=== PATIENT | female | born 1955 | race Caucasian/White ===

== ENCOUNTER → 2020-06-11 | Outpatient (CLI) | payer OTHER ==
--- NOTE | 2020-06-11 15:34 | RAD ---
Examination: 1. Limited right breast ultrasound. INDICATION: Screening recall for 6 mm mass in the right 6:30 o'clock position 2.7 cm from the nipple. COMPARISON: Bilateral screening mammogram of 05/28/2020 TECHNIQUE: Grayscale ultrasound imaging of the inferior subareolar right breast was performed in addition to sonographic survey of the right axilla. FINDINGS: Sonographically benign cyst at the 6:00 position 1 cm from the nipple measuring 7 mm is identified and correlates in size shape and position with the mammographic finding recalled from screening. No suspicious sonographic findings identified. No abnormal right axillary lymph nodes noted on ultrasound. IMPRESSION: Benign cyst in the subareolar right breast. No evidence of malignancy. Recommend return to routine screening next due in one year in the absence of any clinical concerns which should be promptly reported to the patient's primary care physician if present. BI-RADS Category 2 Benign findings Electronically signed by: Allyson Glasgow MD (06/11/2020 3:31 PM) [id number]
== END ==
LOC: US 14:05
PROVIDERS: ATTEND Internal Medicine
DX: R92.8 Other abnormal and inconclusive findings on diagnostic imaging of breast (principal); N60.02 Solitary cyst of left breast
CPT/HCPCS: 76641

== ENCOUNTER 2020-09-21 06:17 | Emergency (ER) | payer OTHER ==
[~2020-09-21] VITALS: Ht 162.6 cm; Wt 54.0 kg
--- NOTE | 2020-09-21 06:35 | PHYS DOC ---
Past Medical History Past Medical History: Hypertension, Kidney Stone General Adult EDM: Chief Complaint: FLANK PAIN HPI: HPI: Patient is a 64 year old female who presented to ER for evaluation of left- sided back pain and flank pain started yesterday. Patient has a history of kidney stones in the past but she said the pain today is more severe. Patient denies any cough or fever, no chest pain, no nausea OR vomiting. Patient denies any injury. Review of Systems: Review of Systems: Constitutional: Denies fever or chills. [] Eyes: Denies change in visual acuity. [] HENT: Denies nasal congestion or sore throat. [] Respiratory: Denies cough or shortness of breath. [] Cardiovascular: Denies chest pain or edema. [] GI: Positive for left side flank pain, left-sided back pain, no nausea vomiting, no diarrhea. : Denies dysuria. [] Musculoskeletal: Positive for low back pain, no joint pain. Integument: Denies rash. [] Neurologic: Denies headache, focal weakness or sensory changes. [] Endocrine: Denies polyuria or polydipsia. [] Lymphatic: Denies swollen glands. [] Psychiatric: Denies depression or anxiety. [] Heart Score: Risk Factors: Risk Factors: DM, Current or recent (<one month) smoker, HTN, HLP, family history of CAD, obesity. Risk Scores: Score 0 - 3: 2.5% MACE over next 6 weeks - Discharge Home Score 4 - 6: 20.3% MACE over next 6 weeks - Admit for Clinical Observation Score 7 - 10: 72.7% MACE over next 6 weeks - Early Invasive Strategies Physical Exam: PE: Constitutional: Well developed, well nourished, no acute distress, non-toxic appearance. [] HENT: Normocephalic, atraumatic, bilateral external ears normal, oropharynx moist, no oral exudates, nose normal. [] Eyes: PERRLA, EOMI, conjunctiva normal, no discharge. [] Neck: Normal range of motion, no tenderness, supple, no stridor. [] Cardiovascular:Heart rate regular rhythm, no murmur [] Lungs & Thorax: Bilateral breath sounds clear to auscultation [] Abdomen: Bowel sounds normal, soft, no tenderness, no masses, no pulsatile masses. [] Skin: Warm, dry, no erythema, no rash. [] Back: No tenderness, no CVA tenderness. [] Extremities: No tenderness, no cyanosis, no clubbing, ROM intact, no edema. [] Neurologic: Alert and oriented X 3, normal motor function, normal sensory function, no focal deficits noted. [] Psychologic: Affect normal, judgement normal, mood normal. [] Current Patient Data: Labs: Laboratory Tests Test 09/21/20 06:35 White Blood Count 12.8 x10^3/uL Red Blood Count 5.26 x10^6/uL Hemoglobin 16.1 g/dL Hematocrit 48.1 % Mean Corpuscular Volume 92 fL Mean Corpuscular Hemoglobin 31 pg Mean Corpuscular Hemoglobin Concent 33 g/dL Red Cell Distribution Width 14.5 % Platelet Count 261 x10^3/uL Neutrophils (%) (Auto) 83 % Lymphocytes (%) (Auto) 12 % Monocytes (%) (Auto) 4 % Eosinophils (%) (Auto) 0 % Basophils (%) (Auto) 0 % Neutrophils # (Auto) 10.7 x10^3/uL Lymphocytes # (Auto) 1.6 x10^3/uL Monocytes # (Auto) 0.5 x10^3/uL Eosinophils # (Auto) 0.0 x10^3/uL Basophils # (Auto) 0.0 x10^3/uL Urine Collection Type Unknown Urine Color Yellow Urine Clarity Clear Urine pH 6.0 Urine Specific [place] 1.025 Urine Protein Negative mg/dL Urine Glucose (UA) Negative mg/dL Urine Ketones (Stick) Trace mg/dL Urine Blood Moderate Urine Nitrite Negative Urine Bilirubin Negative Urine Urobilinogen Dipstick 1.0 mg/dL Urine Leukocyte Esterase Negative Urine RBC 3-5 /HPF Urine WBC 0 /HPF Urine Squamous Epithelial Cells Few /LPF Urine Bacteria 0 /HPF Urine Mucus Slight /LPF Urine Yeast Present /HPF Sodium Level 141 mmol/L Potassium Level 3.9 mmol/L Chloride Level 104 mmol/L Carbon Dioxide Level 26 mmol/L Anion Gap 11 Blood Urea Nitrogen 15 mg/dL Creatinine 0.5 mg/dL Estimated GFR (Cockcroft-Gault) 123.4 BUN/Creatinine Ratio 30 Glucose Level 133 mg/dL Calcium Level 9.7 mg/dL Total Bilirubin 0.6 mg/dL Aspartate Amino Transf (AST/SGOT) 17 U/L Alanine Aminotransferase (ALT/SGPT) 35 U/L Alkaline Phosphatase 81 U/L Total Protein 6.7 g/dL Albumin 4.2 g/dL Albumin/Globulin Ratio 1.7 Lipase 68 U/L Current Medications Medications (Trade) Dose Ordered Sig/Regis Route PRN Reason Start Time Stop Time Status Last Admin Dose Admin Ondansetron HCl (Zofran) 4 mg 1X ONCE IVP 09/21/20 06:45 09/21/20 06:46 DC 09/21/20 06:42 Morphine Sulfate (Morphine Sulfate) 4 mg 1X ONCE IV 09/21/20 06:45 09/21/20 06:46 DC 09/21/20 06:42 Ondansetron HCl (Zofran) 4 mg STK-MED ONCE .ROUTE 09/21/20 06:39 09/21/20 06:40 DC Morphine Sulfate (Morphine Sulfate) 4 mg STK-MED ONCE .ROUTE 09/21/20 06:39 09/21/20 06:40 DC Ketorolac Tromethamine (Toradol 30mg Vial) 30 mg 1X ONCE IVP 09/21/20 08:00 09/21/20 08:01 DC EKG: EKG: [] Radiology/Procedures: Radiology/Procedures: [][facility] [address] [place] [address] IMAGING REPORT Signed PATIENT: ILYA TORRESOUNT: [id number] : 1955 LOCATION: ER AGE: 64 SEX: F EXAM STATUS: REG ER ORD. PHYSICIAN: JULITA AVELAR DO REASON: left side flank pain. H/o kidney stones PROCEDURE: CT ABDOMEN PELVIS WO CONTRAST Exam: CT abdomen/pelvis without intravenous contrast Indication: Left-sided flank pain, history of kidney stones Comparison: CT abdomen pelvis 03/15/2020 Technique: Helical CT imaging performed of the abdomen and pelvis without the use of intravenous contrast. Sagittal and coronal reformats were obtained. One or more of the following individualized dose reduction techniques were utilized for this examination: 1. Automated exposure control 2. Adjustment of the mA and/or kV according to patient size 3. Use of iterative reconstruction technique. Findings: Inherently limited evaluation without intravenous contrast. Lower chest: Calcified granuloma in the lingula. Heart is normal in size. Liver: Normal. Gallbladder/Biliary Tree: There is sludge in the gallbladder. Bile ducts are normal. Pancreas: Normal. Spleen: No splenomegaly. There are calcified splenic granulomas. Adrenal Glands: Normal Kidneys/Ureters/Bladder: Kidneys are normal in size. Left nephrolithiasis is redemonstrated. A calculus in the superior left renal pole has increased in size, now 4 mm. No hydronephrosis. Ureters are normal. Bladder is normal. Reproductive Organs: Normal. Stomach, small bowel, and colon: The stomach, small bowel, and colon are normal. Vasculature: Abdominal aorta is normal in caliber. There is mild calcified aortoiliac atherosclerosis. Lymph Nodes: No lymphadenopathy. Peritoneum and retroperitoneum: No free fluid or free air. Bones: No acute osseous abnormality. Miscellaneous: Surgical changes of ventral hernia repair. Impression: 1. Left nephrolithiasis. The calculus in the superior left renal pole has increased in size, now 4 mm. No hydronephrosis or ureteral calculus. 2. Sludge in the gallbladder. Electronically signed by: Nancy Waldron MD (09/21/2020 7:54 AM) [id number] DICTATED and SIGNED BY: NANCY WALDRON MD DATE: 09/21/20 [id number] Course & Med Decision Making: Course & Med Decision Making Pertinent Labs and Imaging studies reviewed. (See chart for details) Patient is a 64-year-old female who presented to ER for evaluation of left flank pain, CT scan of her abdomen pelvis shows some kidney stone inside her left kidney area, no hydronephrosis no hydroureter, no infection. Patient will be discharged home her pain is improved. Patient will need to follow-up with urology for outpatient evaluation and treatment. Patient is amenable to plan of care. Dragon Disclaimer: Dragon Disclaimer: This electronic medical record was generated, in whole or in part, using a voice recognition dictation system. Departure Departure Impression: Primary Impression: Kidney stone on left side Disposition: 01 DC HOME SELF CARE/HOMELESS Condition: IMPROVED Referrals: SEGUNDO ORTEGA MD (PCP) PLEASE CALL [facility] UROLOGY [facility]PARTMENT FOR FOLLOW UP THIS WEEK. The phone number is [phone] Patient Instructions: Diet for Kidney Stones, Kidney Stones Additional Instructions: Thank you for visiting our Emergency Department. We appreciate you trusting us with your care. If any additional problems come up don't hesitate to return to visit us. Please follow up with your primary care provider so they can plan additional care if needed and know about the problem that you had. If symptoms worsen come back to the Emergency Department. Any concerning symptoms that start such as chest pain, shortness of air, weakness or numbness on one side of the b arcelia, running high fevers or any other concerning symptoms return to the ER. Scripts Ondansetron Hcl (ZOFRAN) 4 Mg Tablet 1 TAB PO Q6HRS PRN for NAUSEA, #20 TAB Prov: JULITA AVELAR DO 09/21/20 Hydrocodone/Acetaminophen (Hydrocodone-Acetamin 5-325 mg) 1 Each Tablet 1 EACH PO Q6HRS PRN for PAIN, #15 TAB Prov: JULITA AVELAR DO 09/21/20 Naproxen Sodium (ANAPROX DS) 550 Mg Tablet 1 TAB PO BID PRN for PAIN for 15 Days, #30 TAB 0 Refills Prov: JULITA AVELAR DO 09/21/20 JULITA AVELAR DO Sep 21, 2020 06:35
[2020-09-21] MEDS ORDERED: ONDANSETRON PF 4 MG/2 ML VIAL. ONE (06:39)
[2020-09-21] MEDS ORDERED: MORPHINE SULFATE 4 MG/ML VIAL. ONE (06:39)
[2020-09-21] MEDS ORDERED: ONDANSETRON PF 4 MG/2 ML VIAL. IVP ONE (06:45)
[2020-09-21] MEDS ORDERED: MORPHINE SULFATE 4 MG/ML VIAL. IV ONE (06:45)
[2020-09-21 07:01] LABS: CALCIUM 9.7 mg/dL (8.5-10.1); CREATININE 0.5 mg/dL (0.6-1.0); GFR 123.4; POTASSIUM 3.9 mmol/L (3.5-5.1)
[2020-09-21 07:03] LABS: BILIRUBIN,URINE NEGATIVE (NEG); CLARITY,URINE CLEAR; COLOR,URINE YELLOW; NITRITE,URINE NEGATIVE (NEG); PROTEIN,URINE NEGATIVE (NEG-TRACE)
[2020-09-21 07:07] LABS: ALBUMIN 4.2 g/dL (3.4-5.0); ALBUMIN/GLOBULIN RATIO 1.7 (1.0-1.7); TOTAL BILIRUBIN 0.6 mg/dL (0.2-1.0); TOTAL PROTEIN 6.7 g/dL (6.4-8.2)
[2020-09-21 07:16] LABS: BASO % 0 % (0-3); EOS % 0 % (0-3); HEMATOCRIT 48.1 % (36.0-47.0); HEMOGLOBIN 16.1 g/dL (12.0-15.5); LYMPH # 1.6 x10^3/uL (1.0-4.8); LYMPH % 12 % (24-48); MEAN CORPUSCULAR HEMOGLOBIN 31 pg (25-35); MEAN CORPUSCULAR HGB CONC 33 g/dL (31-37); MEAN CORPUSCULAR VOLUME 92 fL (79-100); MONO # 0.5 x10^3/uL (0.0-1.1); MONO % 4 % (0-9); NEUT # 10.7 x10^3/uL (1.8-7.7); NEUT % 83 % (31-73); PLATELET COUNT 261 x10^3/uL (140-400); RED BLOOD COUNT 5.26 x10^6/uL (3.50-5.40); RED CELL DISTRIBUTION WIDTH 14.5 % (11.5-14.5); WHITE BLOOD COUNT 12.8 x10^3/uL (4.0-11.0)
[2020-09-21 07:17] LABS: BACTERIA,URINE 0 /HPF (0-FEW); WBC,URINE 0 /HPF (0-4); YEAST,URINE PRESENT /HPF
--- NOTE | 2020-09-21 07:56 | RAD ---
Exam: CT abdomen/pelvis without intravenous contrast Indication: Left-sided flank pain, history of kidney stones Comparison: CT abdomen pelvis 03/15/2020 Technique: Helical CT imaging performed of the abdomen and pelvis without the use of intravenous cont rast. Sagittal and coronal reformats were obtained. One or more of the following individualized dose reduction techniques were utilized for this examinat ion: 1. Automated exposure control 2. Adjustment of the mA and/or kV according to patient size 3. Use of iterative reconstruction technique. Findings: Inherently limited evaluation without intravenous contrast. Lower chest: Calcified granuloma in the lingula. Heart is normal in size. Liver: Normal. Gallbladder/Biliary Tree: There is sludge in the gallbladder. Bile ducts are normal. Pancreas: Normal. Spleen: No splenomegaly. There are calcified splenic granulomas. Adrenal Glands: Normal Kidneys/Ureters/Bladder: Kidneys are normal in size. Left nephrolithiasis is redemonstrated. A calcul us in the superior left renal pole has increased in size, now 4 mm. No hydronephrosis. Ureters are no rmal. Bladder is normal. Reproductive Organs: Normal. Stomach, small bowel, and colon: The stomach, small bowel, and colon are normal. Vasculature: Abdominal aorta is normal in caliber. There is mild calcified aortoiliac atherosclerosis . Lymph Nodes: No lymphadenopathy. Peritoneum and retroperitoneum: No free fluid or free air. Bones: No acute osseous abnormality. Miscellaneous: Surgical changes of ventral hernia repair. Impression: 1. Left nephrolithiasis. The calculus in the superior left renal pole has increased in size, now 4 m m. No hydronephrosis or ureteral calculus. 2. Sludge in the gallbladder. Electronically signed by: Nancy Waldron MD (09/21/2020 7:54 AM) [id number]
[2020-09-21] MEDS ORDERED: KETOROLAC 30 MG/ML VIAL. IVP ONE (08:00)
[2020-09-21] MEDS ORDERED: HYDR-2759 PO (08:09)
[2020-09-21] MEDS ORDERED: NAPR-682 PO (08:09)
[2020-09-21] MEDS ORDERED: ONDA4TAB7 PO (08:09)
[2020-09-21 08:38] VITALS: BP 121/65
[2020-09-21] MEDS ORDERED: OXYC1TAB15 PO (22:01)
== END 2020-09-21 08:50 | disposition home or self-care (01) ==
LOC: ER 06:17
DX: N20.0 Calculus of kidney (principal); M54.5 Low back pain; R10.9 Unspecified abdominal pain; I10 Essential (primary) hypertension; Z87.442 Personal history of urinary calculi
CPT/HCPCS: 36415; 74176; 80053; 81001; 83690; 85025; 96374; 96375; 99284; J1885; J2270; J2405

== ENCOUNTER 2020-09-21 18:03 | Emergency (ER) | payer OTHER ==
[~2020-09-21] VITALS: Ht 162.6 cm; Wt 54.0 kg
[~2020-09-21 18:03] MED LIST: HYDR-2759 PO; NAPR-682 PO; ONDA4TAB7 PO
[2020-09-21] MEDS ORDERED: MORPHINE SULFATE 4 MG/ML VIAL. IV ONE (18:45)
[2020-09-21] MEDS ORDERED: KETOROLAC 30 MG/ML VIAL. IVP ONE (18:45)
[2020-09-21] MEDS ORDERED: ONDANSETRON PF 4 MG/2 ML VIAL. IVP ONE (18:45)
[2020-09-21] MEDS ORDERED: IV NORMAL SALINE 1000ML BAG 1,000 ML IV SCH (18:45)
--- NOTE | 2020-09-21 18:45 | PHYS DOC ---
Past Medical History Past Medical History: Hypertension, Kidney Stone Additional Past Medical Histor: KIDNEY STONES Past Surgical History: Cholecystectomy, Smoking Status: Current Every Day Smoker Alcohol Use: None Adult General Chief Complaint Chief Complaint: FLANK PAIN HPI HPI Patient is a 64 year old female with past medical history of hypertension and nephrolithiasis no presenting emergency department complaining worsening left- sided flank pain. Patient seen this morning and evaluated for the same issues. States that since that time her pain has not improved. CT scan was obtained this morning which demonstrate a 4 mm left renal pelvic stone but no ureteral stone. No evidence of fever or pyelonephritis at this time either. Denies any new fever, nausea, vomiting, chest pain, dizziness or lightheadedness. Review of Systems Review of Systems Constitutional: Denies fever or chills [] Eyes: Denies change in visual acuity, redness, or eye pain [] HENT: Denies nasal congestion or sore throat [] Respiratory: Denies cough or shortness of breath [] Cardiovascular: No additional information not addressed in HPI [] GI: Denies abdominal pain, nausea, vomiting, bloody stools or diarrhea [] : Denies dysuria or hematuria [] Musculoskeletal: Denies back pain or joint pain [] Integument: Denies rash or skin lesions [] Neurologic: Denies headache, focal weakness or sensory changes [] Endocrine: Denies polyuria or polydipsia [] All other systems were reviewed and found to be within normal limits, except as documented in this note. Current Medications Current Medications Current Medications Medications (Trade) Dose Ordered Sig/Regis Start Time Stop Time Status Last Admin Dose Admin Cyclobenzaprine HCl (Flexeril) 10 mg 1X ONCE 09/21/20 20:00 09/21/20 20:02 DC 09/21/20 20:05 10 MG Fentanyl Citrate (Fentanyl 2ml Vial) 100 mcg 1X ONCE 09/21/20 19:15 09/21/20 19:16 DC 09/21/20 20:06 100 MCG Ketorolac Tromethamine (Toradol 30mg Vial) 15 mg 1X ONCE 09/21/20 18:45 09/21/20 18:46 DC 09/21/20 19:12 15 MG Morphine Sulfate (Morphine Sulfate) 4 mg 1X ONCE 09/21/20 18:45 09/21/20 19:12 DC Ondansetron HCl (Zofran) 4 mg 1X ONCE 09/21/20 18:45 09/21/20 18:46 DC 09/21/20 19:11 4 MG Sodium Chloride 1,000 ml @ 1,000 mls/hr Q1H 09/21/20 18:45 09/21/20 19:44 DC 09/21/20 19:11 1,000 MLS/HR Allergies Allergies Allergies Coded Allergies Type Severity Reaction Last Updated Verified morphine Allergy Severe HALLUCINATIONS 09/21/20 Yes Physical Exam Physical Exam Constitutional: Well developed, well nourished, no acute distress, non-toxic appearance. [] HENT: Normocephalic, atraumatic, bilateral external ears normal, oropharynx moist, no oral exudates, nose normal. [] Eyes: PERRLA, EOMI, conjunctiva normal, no discharge. [] Neck: Normal range of motion, no tenderness, supple, no stridor. [] Cardiovascular:Heart rate regular rhythm, no murmur [] Lungs & Thorax: Bilateral breath sounds clear to auscultation [] Abdomen: Bowel sounds normal, soft, no tenderness, no masses, no pulsatile masses. [] Skin: Warm, dry, no erythema, no rash. [] Back: No tenderness, no CVA tenderness. [] Extremities: No tenderness, no cyanosis, no clubbing, ROM intact, no edema. [] Neurologic: Alert and oriented X 3, normal motor function, normal sensory function, no focal deficits noted. [] Psychologic: Affect normal, judgement normal, mood normal. [] Current Patient Data Vital Signs Vital Signs Date Time Temp Pulse Resp B/P (MAP) Pulse Ox O2 Delivery O2 Flow Rate FiO2 09/21/20 20:38 58 23 149/71 (97) 96 Room Air 09/21/20 18:03 96.9 96.9 Lab Values Laboratory Tests Test 09/21/20 19:10 09/21/20 19:45 White Blood Count 11.6 x10^3/uL (4.0-11.0) H Red Blood Count 4.98 x10^6/uL (3.50-5.40) Hemoglobin 15.6 g/dL (12.0-15.5) H Hematocrit 46.1 % (36.0-47.0) Mean Corpuscular Volume 93 fL (79-100) Mean Corpuscular Hemoglobin 31 pg (25-35) Mean Corpuscular Hemoglobin Concent 34 g/dL (31-37) Red Cell Distribution Width 14.2 % (11.5-14.5) Platelet Count 230 x10^3/uL (140-400) Neutrophils (%) (Auto) 81 % (31-73) H Lymphocytes (%) (Auto) 13 % (24-48) L Monocytes (%) (Auto) 5 % (0-9) Eosinophils (%) (Auto) 0 % (0-3) Basophils (%) (Auto) 0 % (0-3) Neutrophils # (Auto) 9.4 x10^3/uL (1.8-7.7) H Lymphocytes # (Auto) 1.5 x10^3/uL (1.0-4.8) Monocytes # (Auto) 0.6 x10^3/uL (0.0-1.1) Eosinophils # (Auto) 0.0 x10^3/uL (0.0-0.7) Basophils # (Auto) 0.0 x10^3/uL (0.0-0.2) D-Dimer (Tanya) 0.27 ug/mlFEU (0.00-0.50) Sodium Level 139 mmol/L (136-145) Potassium Level 3.4 mmol/L (3.5-5.1) L Chloride Level 102 mmol/L (98-107) Carbon Dioxide Level 27 mmol/L (21-32) Anion Gap 10 (6-14) Blood Urea Nitrogen 10 mg/dL (7-20) Creatinine 0.5 mg/dL (0.6-1.0) L Estimated GFR (Cockcroft-Gault) 123.4 BUN/Creatinine Ratio 20 (6-20) Glucose Level 136 mg/dL (70-99) H Calcium Level 9.4 mg/dL (8.5-10.1) Total Bilirubin 0.5 mg/dL (0.2-1.0) Aspartate Amino Transferase (AST) 13 U/L (15-37) L Alanine Aminotransferase (ALT) 27 U/L (14-59) Alkaline Phosphatase 70 U/L (46-116) Total Protein 6.8 g/dL (6.4-8.2) Albumin 4.0 g/dL (3.4-5.0) Albumin/Globulin Ratio 1.4 (1.0-1.7) Urine Collection Type Void Urine Color Straw Urine Clarity Clear Urine pH 7.5 (<5.0-8.0) Urine Specific [place] <=1.005 (1.000-1.030) Urine Protein Negative mg/dL (NEG-TRACE) Urine Glucose (UA) Negative mg/dL (NEG) Urine Ketones (Stick) 15 mg/dL (NEG) Urine Blood Moderate (NEG) Urine Nitrite Negative (NEG) Urine Bilirubin Negative (NEG) Urine Urobilinogen Dipstick 0.2 mg/dL (0.2 mg/dL) Urine Leukocyte Esterase Trace (NEG) Urine RBC 6-10 /HPF (0-2) Urine WBC Rare /HPF (0-4) Urine Squamous Epithelial Cells Few /LPF Urine Bacteria Few /HPF (0-FEW) Laboratory Tests 09/21/20 19:10 Laboratory Tests 09/21/20 19:10 EKG EKG [] Radiology/Procedures Radiology/Procedures [] Course & Med Decision Making Course & Med Decision Making Pertinent Labs and Imaging studies reviewed. (See chart for details) 64-year-old female presenting with persistent left-sided flank pain despite evaluation this morning and evidence of renal stones and treatment for the same. At this time will repeat labs to make sure there is no evidence of acute renal injury and attempt symptomatic relief. 21:57 -labs reviewed and unremarkable. Patient patient's back pain concerned that there was potentially an injury vascular arterial injury however D-dimer was obtained which makes this extremely unlikely. Patient's symptoms have improved. At this time will discharge patient home. An extensive discussion with the patient and her daughter regarding return precautions. Patient and daughter verbalized understanding and agreement discharge Dragon Disclaimer Dragon Disclaimer This electronic medical record was generated, in whole or in part, using a voice recognition dictation system. Departure Departure Impression: Primary Impression: Flank pain Disposition: 01 DC HOME SELF CARE/HOMELESS Condition: GOOD Referrals: SEGUNDO ORTEGA MD (PCP) Patient Instructions: Flank Pain Additional Instructions: EMERGENCY DEPARTMENT GENERAL DISCHARGE INSTRUCTIONS Thank you for coming to [facility] Emergency Department (ED) today and trusting us with you care. We trust that you had a positive experience in our Emergency Department. If you wish to speak to the department management, you may call the Director at [phone]. YOUR FOLLOW UP INSTRUCTIONS ARE FOLLOWS: 1. Do you have a private Doctor? If you do not have a private doctor, please ask for a resource list of physicians or clinics that may be able to assist you with follow up care. 2. The Emergency Physicain has interpreted your x-rays. The X-Ray specialist will also review them. If there is a change in the findings, you will be notified in 48 hours when at all possible. 3. A lab test or culture has been done, your results will be reviewed and you will be notified if you need a change in treatment. ADDITIONAL INSTRUCTIONS AND INFORMATION: 1. Your care today has been supervised by a physician who is specially trained in emergency care. Many problems require more than one evaluation for a complete diagnosis and treatment. We recommend that you schedule your follow up appointment as recommended to ensure complete treatment of you illness or injury. If you are unable to obtain follow up care and continue to have a problem, or if your condition worsens, we recommend that you return to the ED. 2. We are not able to safely determine your condition over the phone nor are we able to give sound medical advice over the phone. For these safety reasons, if you call for medical advice we will ask you to come to the ED for further evaluation. 3. If you have any questions regarding these discharge instructions please call the ED at [phone]. SAFETY INFORMATION: In the interest of safety, wellness, and injury prevention; we encourage you to wear your sealbelt, if you smoke; quite smoking, and we encourage family to use a protective helmet for bicycling and other sporting events that present an increased risk for head injury. IF YOUR SYMPTOMS WORSEN OR NEW SYMPTOMS DEVELOP, OR YOU HAVE CONCERNS ABOUT YOUR CONDITION; OR IF YOUR CONDITION WORSENS WHILE YOU ARE WAITING FOR YOUR FOLLOW UP APPOINTMENT; EITHER CONTACT YOUR PRIMARY CARE DOCTOR, THE PHYSICIAN WHOSE NAME AND NUMBER YOU WERE GIVEN, OR RETURN TO THE ED IMMEDIATELY. Scripts Oxycodone/Apap 5-325 (PERCOCET 5-325 MG TABLET ) 1 Each Tablet 1 TAB PO PRN Q6HRS PRN for PAIN, #12 TAB 0 Refills Prov: AZALEA AUGUSTINE MD 09/21/20 AZALEA AUGUSTINE MD Sep 21, 2020 18:45
[2020-09-21] MEDS ORDERED: fentaNYL PF VIAL 100 MCG/2 ML VIAL IVP ONE ×2 (19:15→22:30)
[2020-09-21 19:32] LABS: BASO % 0 % (0-3); EOS % 0 % (0-3); HEMATOCRIT 46.1 % (36.0-47.0); HEMOGLOBIN 15.6 g/dL (12.0-15.5); LYMPH # 1.5 x10^3/uL (1.0-4.8); LYMPH % 13 % (24-48); MEAN CORPUSCULAR HEMOGLOBIN 31 pg (25-35); MEAN CORPUSCULAR HGB CONC 34 g/dL (31-37); MEAN CORPUSCULAR VOLUME 93 fL (79-100); MONO # 0.6 x10^3/uL (0.0-1.1); MONO % 5 % (0-9); NEUT # 9.4 x10^3/uL (1.8-7.7); NEUT % 81 % (31-73); PLATELET COUNT 230 x10^3/uL (140-400); RED BLOOD COUNT 4.98 x10^6/uL (3.50-5.40); RED CELL DISTRIBUTION WIDTH 14.2 % (11.5-14.5); WHITE BLOOD COUNT 11.6 x10^3/uL (4.0-11.0)
[2020-09-21 19:40] LABS: CALCIUM 9.4 mg/dL (8.5-10.1); CREATININE 0.5 mg/dL (0.6-1.0); GFR 123.4; POTASSIUM 3.4 mmol/L (3.5-5.1)
[2020-09-21 19:44] LABS: ALBUMIN/GLOBULIN RATIO 1.4 (1.0-1.7); TOTAL BILIRUBIN 0.5 mg/dL (0.2-1.0); TOTAL PROTEIN 6.8 g/dL (6.4-8.2)
[2020-09-21 19:55] LABS: BILIRUBIN,URINE NEGATIVE (NEG); CLARITY,URINE CLEAR; NITRITE,URINE NEGATIVE (NEG); PH,URINE 7.5 (<5.0-8.0); PROTEIN,URINE NEGATIVE (NEG-TRACE); UROBILINOGEN,URINE 0.2 mg/dL (0.2 mg/dL)
[2020-09-21] MEDS ORDERED: CYCLOBENZAPRINE 10 MG TABLET. PO ONE (20:00)
[2020-09-21 20:06] LABS: COLOR,URINE STRAW
[2020-09-21 20:07] LABS: BACTERIA,URINE FEW /HPF (0-FEW); WBC,URINE RARE /HPF (0-4)
[2020-09-21] MEDS ORDERED: OXYC1TAB15 PO (22:01)
[2020-09-21 22:29] VITALS: BP 182/83
== END 2020-09-21 22:35 | disposition home or self-care (01) ==
LOC: ER 18:03
DX: R10.32 Left lower quadrant pain (principal); I10 Essential (primary) hypertension; F17.200 Nicotine dependence, unspecified, uncomplicated; Z87.442 Personal history of urinary calculi; Z90.49 Acquired absence of other specified parts of digestive tract; Z98.890 Other specified postprocedural states; Z88.6 Allergy status to analgesic agent
CPT/HCPCS: 36415; 80053; 81001; 85025; 85379; 96361; 96374; 96375; 96376; 99285; J1885; J2405; J3010; J7030